=== PATIENT | male | born 1985 | race Caucasian/White ===

== ENCOUNTER 2018-08-23 10:37 | Emergency (ER) | payer BC ==
[~2018-08-23] VITALS: Ht 175.3 cm; Wt 85.0 kg
[2018-08-23] MEDS ORDERED: LORazepam 1MG TABLET PO ONE (11:30)
--- NOTE | 2018-08-23 11:42 | NUR ---
PANIC ATTACKS FROM STAYING UP TO LATE," I STAYED UP TO LATE AND DRANK TOO MUCH" REPORTS DRINKING ROUGHLY A 1/5 OF LIQUOUR/DAY FOR THE LAST 3 DAYS. LAST DRINK 2AM. PRIOR TO THAT ONLY SOCIAL DRINKER. REPORTS HX OF INTERMITTENT ANXIETY WHICH HE CAN CONTROL HIMSELF. ALERT/ORIENTED/PLEASANT. VSS. ON BUNG REMOVER, CALL ALEXANDER IN HAND/SIDERAILS UP
[2018-08-23] MEDS ORDERED: LORazepam 1MG TABLET ONE (11:46)
--- NOTE | 2018-08-23 12:38 | NUR ---
PATIENT AWOKEN FROM [facility] FOR RE-EVAL. OPON AWAKENING REPORT "YES THE ATIVAN IS WHAT I NEEDEDI FEEL MUCH BETTER." CIWA NEGATIVE, VSS. PATIENT TOLERATED PO FLUIDS, WALKED INDEPENDENTLY TO RESTROOM W/OUT ABNORMALITY AND DISCHARGED TO WALK BACK TO HIS HOTEL ROOM W/ GIRLFRIEND WHO WILL KEEP AN EYE ON HIM.
[2018-08-23 12:41] VITALS: BP 138/93
== END 2018-08-23 12:45 | disposition home or self-care (01) ==
LOC: ED 10:56
DX: F41.1 Generalized anxiety disorder (principal)
CPT/HCPCS: 93005; 99284